=== PATIENT | female | born 1950 | race Hispanic/Latino ===

== ENCOUNTER 2018-05-17 17:46 | Observation (INO) | payer MEDICARE ==
[~2018-05-17] VITALS: Ht 154.9 cm; Wt 84.8 kg
[~2018-05-17 17:46] MED LIST: CETI10TA57 PO; GABA300C PO; HUMLIS7525 SQ; HYDR-4064 PO; INSU10VI4 SQ; LISI-617 PO; MELA3TAB PO; METF-527 PO; MILK1CAP3 PO
[2018-05-17] MEDS ORDERED: GLUCAGON 1MG KIT 1 MG ML IM PRN (18:30)
[2018-05-17] MEDS ORDERED: DEXTROSE 50%-WATER 50 ML DISP.SYRIN IV PRN (18:30)
[2018-05-17] MEDS ORDERED: ZOLPIDEM TARTRATE 5 MG TAB PO PRN (18:30)
[2018-05-17] MEDS ORDERED: ONDANSETRON ODT 4 MG TAB PO PRN (18:30)
[2018-05-17] MEDS ORDERED: DiphenhydrAMINE HCL 50 MG/ML VIAL IVP PRN (18:30)
[2018-05-17] MEDS ORDERED: ACETAMINOPHEN 325 MG TAB PO PRN ×2 (18:30)
[2018-05-17 18:46] VITALS: BP 159/78
[2018-05-17] MEDS: 1/2 NORMAL SALINE 1,000 ML IV SCH (18:53)
[2018-05-17] MEDS: METRONIDAZOLE 500MG/100ML BAG 100 ML IVPB SCH (18:53)
[2018-05-17] MEDS: CEFTRIAXONE SODIUM 1 GM IVP SCH (18:53)
[2018-05-17 19:11] LABS: HEMATOCRIT 33.2 % (36-48); MEAN CORPUSCULAR HEMOGLOBIN 30.6 pg (27.0-33.0); MEAN CORPUSCULAR HGB CONC 35.2 g/dL (32.0-36.0); MEAN CORPUSCULAR VOLUME 86.9 fL (79-99); PLATELET COUNT (AUTO) 288 K/uL (130-400); RED BLOOD CELL COUNT(AUTO) 3.83 MIL/uL (4.00-5.50); RED CELL DISTRIBUTION WIDTH 13.3 % (11.0-15.5); WHITE BLOOD COUNT (AUTO) 10.6 K/uL (4.8-10.8)
[2018-05-17 19:31] LABS: ALBUMIN 3.3 g/dL (3.5-5.0); BILIRUBIN,DIRECT 0.1 mg/dL (0.0-0.3); BILIRUBIN,TOTAL 0.3 mg/dL (0.2-1.0); CREATININE 1.3 mg/dL (0.5-1.5); POTASSIUM 3.8 mmol/L (3.5-5.1); TOTAL PROTEIN, SERUM 8.1 g/dL (6.0-8.3)
[2018-05-17 19:40] LABS: EOSINOPHILS % (MANUAL) 5 % (1-6); LYMPHOCYTES % (MANUAL) 25 % (22-44); MONOCYTES % (MANUAL) 4 % (2-9); REACTIVE LYMPHOCYTES 1 % (0-0); SEGMENTED NEUTROPHILS % 65 % (40-70)
[2018-05-17 19:41] LABS: PLATELET MORPHOLOGY COMMENT ADEQUATE
[2018-05-17] MEDS ORDERED: DIATR MEGLU/DIATRIZOATE SODIUM 30 ML BOTTLE ONE (19:42)
[2018-05-17] MEDS ORDERED: IOHEXOL-350 75 ML VIAL IV ONE (19:42)
[2018-05-17 20:12] VITALS: BP 127/43
[2018-05-17] MEDS: INSULIN R PO SS1 SQ SCH (20:47)
[2018-05-17] MEDS ORDERED: MORPHINE SULFATE 4 MG/1ML SYG IV PRN (21:15)
[2018-05-17] MEDS ORDERED: MELA1TAB21 PO (21:54)
[2018-05-17] MEDS ORDERED: INSU200I4 SQ (21:58)
[2018-05-17] MEDS ORDERED: FAMO40TA7 PO (21:58)
[2018-05-17] MEDS ORDERED: CITA-106 PO (22:00)
[2018-05-17] MEDS ORDERED: BACL10TA PO (22:00)
[2018-05-17] MEDS ORDERED: DULA1.5P SQ (22:04)
[2018-05-17] MEDS ORDERED: PANT40TA PO (22:10)
[2018-05-17] MEDS ORDERED: NITR0.3T11 SL (22:10)
[2018-05-17] MEDS ORDERED: ALBU2.5V2 IH (22:11)
[2018-05-17] MEDS: FAMOTIDINE 20MG TAB 20 MG TAB PO SCH (22:16)
[2018-05-18 00:12] VITALS: BP 116/39
[2018-05-18] MEDS: METRONIDAZOLE 500MG/100ML BAG 100 ML IVPB SCH ×3 (02:15→18:18)
[2018-05-18 04:12] VITALS: BP 99/53
[2018-05-18 05:08] LABS: HEMATOCRIT 28.7 % (36-48); MEAN CORPUSCULAR HGB CONC 34.6 g/dL (32.0-36.0); MEAN CORPUSCULAR VOLUME 86.6 fL (79-99); PLATELET COUNT (AUTO) 239 K/uL (130-400); RED BLOOD CELL COUNT(AUTO) 3.32 MIL/uL (4.00-5.50); RED CELL DISTRIBUTION WIDTH 12.9 % (11.0-15.5)
[2018-05-18 05:20] LABS: BAND NEUTROPHILS % (MANUAL) 1 % (0-2); LYMPHOCYTES % (MANUAL) 21 % (22-44); MAN.DIFF COMMENT-IMPRESSION MANUAL DIFFERENTIAL; MONOCYTES % (MANUAL) 5 % (2-9); PLATELET MORPHOLOGY COMMENT ADEQUATE; SEGMENTED NEUTROPHILS % 73 % (40-70)
[2018-05-18 05:22] LABS: ALBUMIN 2.8 g/dL (3.5-5.0); BILIRUBIN,DIRECT 0.1 mg/dL (0.0-0.3); BILIRUBIN,TOTAL 0.2 mg/dL (0.2-1.0); POTASSIUM 3.2 mmol/L (3.5-5.1); TOTAL PROTEIN, SERUM 6.7 g/dL (6.0-8.3)
[2018-05-18] MEDS: INSULIN R PO SS1 SQ SCH (06:13)
[2018-05-18] MEDS: CEFTRIAXONE SODIUM 1 GM IVP SCH ×2 (06:56→18:18)
[2018-05-18 07:42] VITALS: BP 114/55
[2018-05-18] MEDS: FAMOTIDINE 20MG TAB 20 MG TAB PO SCH ×2 (09:00→20:10)
[2018-05-18] MEDS: ENOXAPARIN SODIUM 30 MG/0.3 ML SQ SCH (09:42)
[2018-05-18] MEDS: 1/2 NORMAL SALINE 1,000 ML IV SCH ×2 (09:44→21:10)
[2018-05-18 11:00] VITALS: BP 98/48
[2018-05-18 15:10] VITALS: BP 88/36
[2018-05-18] MEDS: INSULIN HUMULIN R 100 UNIT/ML 3ML SQ SCH (16:13)
[2018-05-18 20:16] VITALS: BP 144/54
[2018-05-19 00:16] VITALS: BP 115/42
[2018-05-19] MEDS: METRONIDAZOLE 500MG/100ML BAG 100 ML IVPB SCH ×2 (02:11→09:40)
[2018-05-19 04:16] VITALS: BP 114/47
[2018-05-19] MEDS: CEFTRIAXONE SODIUM 1 GM IVP SCH (06:30)
[2018-05-19 07:00] VITALS: BP 112/60
[2018-05-19] MEDS: INSULIN HUMULIN R 100 UNIT/ML 3ML SQ SCH (07:30)
[2018-05-19] MEDS: ENOXAPARIN SODIUM 30 MG/0.3 ML SQ SCH (09:00)
[2018-05-19] MEDS: FAMOTIDINE 20MG TAB 20 MG TAB PO SCH (09:00)
[2018-05-19] MEDS ORDERED: ALBUTEROL SULFATE 0.083% 2.5 MG/3 ML INH IH PRN (11:00)
[2018-05-19] MEDS ORDERED: CETIRIZINE HCL 5 MG TABLET PO PRN (11:00)
[2018-05-19 11:10] VITALS: BP 135/57
[2018-05-19] MEDS ORDERED: NITROGLYCERIN 0.4 MG SL TAB SL PRN (11:15)
[2018-05-19] MEDS ORDERED: GABAPENTIN 300 MG CAPSULE PO SCH (21:00)
[2018-05-19] MEDS ORDERED: MELATONIN 10 MG PO SCH (21:00)
[2018-05-20] MEDS ORDERED: PANTOPRAZOLE SODIUM 40 MG TABLET.DR PO SCH (09:00)
[2018-05-20] MEDS ORDERED: CITALOPRAM 20 MG TABLET PO SCH (09:00)
[2018-05-20] MEDS ORDERED: MILK THISTLE SEED EXTRACT PO SCH (09:00)
[2018-05-20] MEDS ORDERED: TRESIBA U SQ SCH (09:00)
[2018-05-20] MEDS ORDERED: LISINOPRIL 5 MG TABLET PO SCH (09:00)
[2018-05-20] MEDS ORDERED: FAMOTIDINE 20MG TAB 20 MG TAB PO SCH (09:00)
[2018-05-26] MEDS ORDERED: TRULICITY 1.5 MG SQ SCH (09:00)
== END 2018-05-19 12:13 | disposition home or self-care (01) ==
LOC: EDH 17:46 → 4BH 17:47 → UNDOADMOB 18:20 → 4BH 18:20 → UNDODISOB 05-19 12:13
PROVIDERS: ADMIT Internal Medicine; ATTEND Internal Medicine
DX: K57.92 Diverticulitis of intestine, part unspecified, without perforation or abscess without bleeding (principal); E86.0 Dehydration; E11.43 Type 2 diabetes mellitus with diabetic autonomic (poly)neuropathy; K31.84 Gastroparesis; J44.9 Chronic obstructive pulmonary disease, unspecified; I45.10 Unspecified right bundle-branch block; E78.5 Hyperlipidemia, unspecified; D64.9 Anemia, unspecified; E66.9 Obesity, unspecified; I10 Essential (primary) hypertension; M19.90 Unspecified osteoarthritis, unspecified site; G47.00 Insomnia, unspecified; F32.9 Major depressive disorder, single episode, unspecified; Z80.0 Family history of malignant neoplasm of digestive organs; Z95.0 Presence of cardiac pacemaker
CPT/HCPCS: 36415 ×2; 74177; 80048 ×2; 80076 ×2; 82948 ×4; 85025 ×2; 94664; 96361 ×2; 96365; 96366 ×2; 96372; 96375 ×2; 96376; 99285; A4218 ×4; G0378 ×42; J0696 ×4; J1650; J2270; J3490 ×5; Q9963; Q9967

== ENCOUNTER 2019-08-09 08:46 | Day surgery (SDC) | payer MEDICARE ==
[2019-08-05 13:56] VITALS: BP 175/57
[2019-08-05 14:03] LABS: BASOPHILS % (AUTO) 0.7 % (0.0-5.0); EOSINOPHILS % (AUTO) 2.9 % (0.0-8.0); HEMATOCRIT 32.7 % (36-48); LYMPHOCYTES % (AUTO) 31.7 % (21.0-51.0); MEAN CORPUSCULAR HEMOGLOBIN 29.5 pg (27.0-33.0); MEAN CORPUSCULAR HGB CONC 33.5 g/dL (32.0-36.0); MONOCYTES % (AUTO) 5.8 % (3.0-13.0); NEUTROPHILS % (AUTO) 58.9 % (40.0-77.0); PLATELET COUNT (AUTO) 242 K/uL (130-400); RED BLOOD CELL COUNT(AUTO) 3.72 MIL/uL (4.00-5.50); RED CELL DISTRIBUTION WIDTH 13.8 % (11.0-15.5); WHITE BLOOD COUNT (AUTO) 8.2 K/uL (4.8-10.8)
[2019-08-05 14:13] LABS: CREATININE 1.1 mg/dL (0.5-1.5); POTASSIUM 4.7 mmol/L (3.5-5.1)
[2019-08-05 14:16] LABS: APPEARANCE,URINE Clear (CLEAR); BILIRUBIN,URINE Negative (NEGATIVE); COLOR,URINE Yellow (YELLOW); GLUCOSE, URINE (UA) Negative (NEGATIVE); KETONES,URINE Negative (NEGATIVE); LEUKOCYTE ESTERASE ,URINE Trace (NEGATIVE); NITRATE,URINE Negative (NEGATIVE); OCCULT BLOOD,URINE Negative (NEGATIVE); PROTEIN,URINE Negative (NEGATIVE)
[2019-08-05 14:17] LABS: INR 0.96 (0.85-1.15); PARTIAL THROMBOPLASTIN TIME 24.3 SEC (26.3-35.5); PROTHROMBIN TIME 10.1 SEC (9.6-11.6)
[2019-08-05 14:28] LABS: BACTERIA,URINE Rare /HPF (None Seen); RBC,URINE None Seen /HPF (0-1)
[2019-08-05 14:29] LABS: SQUAMOUS EPITHELIAL CELL,UR 0-2 /HPF (0-2); WBC,URINE 0-1 /HPF (0-1)
[~2019-08-09] VITALS: Ht 144.8 cm; Wt 81.0 kg
[2019-08-09] VITALS (11 sets, daily range): BP systolic 102–163; BP diastolic 43–53
[~2019-08-09 08:46] MED LIST changes: +ACETAMINOPHEN 325 MG TAB PO PRN; +ASPI-555 PO; -CETI10TA57 PO; -GABA300C PO; -HUMLIS7525 SQ; -HYDR-4064 PO; +IMDUR PO; -INSU10VI4 SQ; +INSU200I4 SQ; +MELA10TA2 PO; +MELA1TAB21 PO; -MELA3TAB PO; +METF-444 PO; -METF-527 PO; -MILK1CAP3 PO; +NITR0.3T11 SL; +OZEMPIC SQ; +SODIUM CHLORIDE 0.9% 500ML 500 ML IV SCH
[2019-08-09] MEDS ORDERED: SODIUM CHLORIDE 0.9% 1000ML 1,000 ML IV ONE (10:44)
[2019-08-09] MEDS ORDERED: PANT40TA PO (10:48)
[2019-08-09] MEDS ORDERED: AMOX1TAB16 PO (10:48)
[2019-08-09] MEDS ORDERED: CETRIZINE HCL PO (10:48)
[2019-08-09] MEDS ORDERED: GABA-531 PO (10:48)
[2019-08-09] MEDS ORDERED: LOPE2TAB24 PO (10:48)
[2019-08-09] MEDS ORDERED: METO-408 PO (10:48)
[2019-08-09] MEDS ORDERED: DOCU100C33 PO (10:48)
[2019-08-09] MEDS ORDERED: OZEMPIC SQ (11:04)
[2019-08-09] MEDS ORDERED: METF500T20 PO (11:08)
--- NOTE | 2019-08-09 11:08 | NUR ---
ADVISED DOCTOR FAY OF PATIENT TAKING HER TRESIBA 70 UNITS AT 3AM AND ADVISED MD OF PATIENT BEING ON ANTIBITOICS FOR SINUS INFECTION
[2019-08-09] MEDS ORDERED: ISOS30TA6 PO (11:30)
[2019-08-09] MEDS ORDERED: HEPARIN SODIUM 1000UNIT/ML 10ML VIAL ONE (11:56)
[2019-08-09] MEDS ORDERED: SODIUM BICARB 50MEQ 50ML VIAL ONE (11:56)
[2019-08-09] MEDS ORDERED: IOHEXOL-350 50ML VIAL IV ONE (11:56)
[2019-08-09] MEDS ORDERED: NITROGLYCERIN 5 MG/ML 10 ML VIAL IV ONE (11:56)
[2019-08-09] MEDS ORDERED: IOHEXOL 350 MG/ML 100ML INFUS..BTL IV ONE (11:57)
[2019-08-09] MEDS ORDERED: MIDAZOLAM HCL 1 MG/ML 2ML VIAL ONE (11:57)
[2019-08-09] MEDS ORDERED: MEPERIDINE-PF 25 MG/ML SYG ONE (11:57)
[2019-08-09] MEDS ORDERED: LIDOCAINE HCL 2% 20ML ONE (11:57)
[2019-08-09] MEDS ORDERED: SODIUM CHLORIDE 0.9% 1000ML 1,000 ML IV SCH (12:34)
[2019-08-09] MEDS ORDERED: GLUCAGON 1MG KIT 1 MG ML IM PRN (12:45)
[2019-08-09] MEDS ORDERED: DEXTROSE 50%-WATER 50 ML DISP.SYRIN IV PRN (12:45)
[2019-08-09] MEDS ORDERED: INSULIN HUMULIN R 100 UNIT/ML 3ML SQ SCH (16:30)
--- NOTE | 2019-08-09 17:50 | NUR ---
Pt discharged home, tolerating fluids/solids well, ambulating with stand-by assistance well. Denies any severe pain, nausea or dizziness. Pt and son report no further questions at this time.
== END 2019-08-09 17:50 | disposition home or self-care (01) ==
LOC: DAH 08:46
PROVIDERS: ATTEND Internal Medicine Cardiovascular Disease
DX: I25.10 Atherosclerotic heart disease of native coronary artery without angina pectoris (principal); E78.5 Hyperlipidemia, unspecified; I10 Essential (primary) hypertension; E11.9 Type 2 diabetes mellitus without complications; E66.01 Morbid (severe) obesity due to excess calories; Z79.84 Long term (current) use of oral hypoglycemic drugs; Z79.899 Other long term (current) drug therapy
CPT/HCPCS: 36415; 71045; 80048; 81001; 82948 ×3; 85025; 85610; 85730; 93005; 93458; A4215; A4216; A4221; A4222; A4223 ×2; A4606; C1760; C1894; J1644; J1815; J2175; J2250; J3490 ×3; J7030; Q9965; Q9967 ×2; 99156; 99157

== ENCOUNTER → 2019-09-21 | Outpatient (CLI) | payer MEDICARE ==
[~2019-09-21] MED LIST changes: -ACETAMINOPHEN 325 MG TAB PO PRN; +AMOX1TAB16 PO; +CETRIZINE HCL PO; +DOCU100C33 PO; +GABA-531 PO; -IMDUR PO; +ISOS30TA6 PO; +LOPE2TAB24 PO; -MELA10TA2 PO; -MELA1TAB21 PO; -METF-444 PO; +METF500T20 PO; +METO-408 PO; +PANT40TA PO; -SODIUM CHLORIDE 0.9% 500ML 500 ML IV SCH
== END | disposition home or self-care (01) ==
LOC: SHCH 13:37
PROVIDERS: ATTEND Internal Medicine Cardiovascular Disease
DX: I11.9 Hypertensive heart disease without heart failure (principal); I34.0 Nonrheumatic mitral (valve) insufficiency
CPT/HCPCS: 93306

== ENCOUNTER → 2019-10-26 | Outpatient (CLI) | payer MEDICARE ==
[~2019-10-26] MED LIST changes: +ALBUTEROL SULFATE 0.083% 2.5 MG/3 ML INH IH ONE
== END | disposition home or self-care (01) ==
LOC: RESP 12:52
PROVIDERS: ATTEND Internal Medicine Cardiovascular Disease
DX: R06.00 Dyspnea, unspecified (principal)
CPT/HCPCS: 94060; 94727; 94729

== ENCOUNTER 2019-12-16 09:19 | Observation (INO) | payer MEDICARE, OTHER ==
[2019-12-14 14:29] LABS: BASOPHILS % (AUTO) 0.7 % (0.0-5.0); EOSINOPHILS % (AUTO) 2.4 % (0.0-8.0); HEMATOCRIT 32.7 % (36-48); LYMPHOCYTES % (AUTO) 32.2 % (21.0-51.0); MEAN CORPUSCULAR HEMOGLOBIN 28.7 pg (27.0-33.0); MEAN CORPUSCULAR HGB CONC 31.8 g/dL (32.0-36.0); MEAN CORPUSCULAR VOLUME 90.1 fL (79-99); MONOCYTES % (AUTO) 5.2 % (3.0-13.0); NEUTROPHILS % (AUTO) 59.3 % (40.0-77.0); PLATELET COUNT (AUTO) 240 K/uL (130-400); RED BLOOD CELL COUNT(AUTO) 3.63 MIL/uL (4.00-5.50); RED CELL DISTRIBUTION WIDTH 12.8 % (11.0-15.5); WHITE BLOOD COUNT (AUTO) 9.9 K/uL (4.8-10.8)
[2019-12-14 14:40] LABS: INR 0.93 (0.85-1.15); PARTIAL THROMBOPLASTIN TIME 25.5 SEC (26.3-35.5); PROTHROMBIN TIME 9.8 SEC (9.6-11.6)
[2019-12-14 14:48] LABS: CREATININE 1.3 mg/dL (0.5-1.5); POTASSIUM 4.8 mmol/L (3.5-5.1)
[2019-12-14 15:03] VITALS: BP 117/40
--- NOTE | 2019-12-14 15:33 | NUR ---
SPOKE TO LALO GUERRIER AND HE IS AWARE OF BI-B AICD UPGRADE
--- NOTE | 2019-12-15 16:30 | NUR ---
labs abnormal everette FINCH reported to Cecil BETTENCOURT, pending call back
--- NOTE | 2019-12-15 16:35 | NUR ---
labs as per Dionte rsoe to proceed with planned procedure no new orders on labs reported
[2019-12-16] VITALS (8 sets, daily range): BP systolic 106–138; BP diastolic 36–70
[~2019-12-16] VITALS: Ht 149.9 cm; Wt 80.3 kg
[~2019-12-16 09:19] MED LIST changes: -ALBUTEROL SULFATE 0.083% 2.5 MG/3 ML INH IH ONE; -AMOX1TAB16 PO; +CEFAZOLIN SODIUM 1 GM VIAL IVP SCH; -DOCU100C33 PO; -LOPE2TAB24 PO; +METF-526 PO; -METF500T20 PO; +OMEP20TA2 PO; -PANT40TA PO; +SODIUM CHLORIDE 0.9% 500ML 500 ML IV SCH
[2019-12-16] MEDS ORDERED: SODIUM CHLORIDE 0.9% 1000ML 1,000 ML IV ONE (09:26)
[2019-12-16] MEDS ORDERED: HEPARIN SODIUM 1000UNIT/ML 10ML VIAL ONE (10:48)
[2019-12-16] MEDS ORDERED: SODIUM BICARB 50MEQ 50ML VIAL ONE (10:48)
[2019-12-16] MEDS ORDERED: IOHEXOL 350 MG/ML 100ML INFUS..BTL IV ONE (10:48)
[2019-12-16] MEDS ORDERED: IOHEXOL-350 50ML VIAL IV ONE (10:48)
[2019-12-16] MEDS ORDERED: LIDOCAINE HCL 2% 20ML ONE (10:49)
[2019-12-16] MEDS ORDERED: FENTANYL CITRATE PF 50 MCG/1 ML 2ML VIAL ONE (10:49)
[2019-12-16] MEDS ORDERED: MIDAZOLAM HCL 1 MG/ML 2ML VIAL ONE ×6 (10:49→15:53)
[2019-12-16] MEDS ORDERED: BUPIVACAINE/PF 0.25% 30ML VIAL IJ ONE ×2 (10:50→13:14)
[2019-12-16] MEDS ORDERED: CEFAZOLIN SODIUM 1 GM VIAL ONE (13:11)
[2019-12-16] MEDS ORDERED: IODIXANOL 320 MG/ML 100 ML VIAL ONE ×2 (13:12→15:22)
[2019-12-16] MEDS ORDERED: MEPERIDINE-PF 25 MG/ML SYG ONE ×3 (13:13→15:53)
[2019-12-16] MEDS ORDERED: LIDOCAINE HCL 1% MDV 50ML VIAL ONE (13:14)
[2019-12-16] MEDS ORDERED: THROMBIN-JMI 5000 UNIT/VIAL TP ONE (16:38)
[2019-12-16] MEDS ORDERED: OCTYL 2-CYANOACRYLATE 1 EACH TP ONE ×2 (16:59→17:03)
[2019-12-16] MEDS ORDERED: DEXTROSE 50%-WATER 50 ML DISP.SYRIN IV PRN (17:30)
[2019-12-16] MEDS ORDERED: ONDANSETRON HCL 4 MG/2 ML VIAL IV PRN (17:30)
--- NOTE | 2019-12-16 17:50 | NUR ---
PT TSF TO 228 FROM SECURITY COORDINATOR
--- NOTE | 2019-12-16 18:08 | NUR ---
INFORMED DR. CADENA OF PATIENT'S ROOM NUMBER.
[2019-12-16] MEDS ORDERED: NITROGLYCERIN 0.4 MG SL TAB SL PRN (20:30)
[2019-12-16] MEDS: ACETAMINOPHEN-CODEINE 300/30MG TAB PO PRN (20:43)
[2019-12-16] MEDS: INSULIN HUMULIN R 100 UNIT/ML 3ML SQ SCH (20:45)
[2019-12-16] MEDS ORDERED: INSULIN DEGLUDEC 70 UNIT SQ SCH (21:00)
[2019-12-16] MEDS ORDERED: ASPIRIN 81 MG EC TAB PO SCH (21:00)
[2019-12-16] MEDS ORDERED: METOPROLOL SUCCINATE 50 MG TAB.SR.24H PO SCH (21:00)
[2019-12-16] MEDS ORDERED: ISOSORBIDE MONO 30MG TAB SR PO SCH (21:00)
[2019-12-16] MEDS ORDERED: CETIRIZINE HCL 5 MG TABLET PO SCH (21:00)
[2019-12-16] MEDS ORDERED: LISINOPRIL 5 MG TABLET PO SCH (21:00)
[2019-12-16] MEDS ORDERED: GABAPENTIN 300 MG CAPSULE PO SCH (21:00)
[2019-12-17] VITALS: BP 111/49
[2019-12-17] MEDS: CEFAZOLIN SODIUM 1 GM VIAL IVP SCH ×2 (00:10→08:41)
[2019-12-17] MEDS: ACETAMINOPHEN-CODEINE 300/30MG TAB PO PRN (01:55)
[2019-12-17 04:10] VITALS: BP 127/59
[2019-12-17] MEDS: INSULIN HUMULIN R 100 UNIT/ML 3ML SQ SCH ×3 (06:39→16:30)
[2019-12-17 08:00] VITALS: BP 134/55
[2019-12-17] MEDS ORDERED: PANTOPRAZOLE SODIUM 40 MG TABLET.DR PO SCH (09:00)
[2019-12-17] MEDS ORDERED: SEMAGLUTIDE SQ SCH (09:00)
[2019-12-17 11:30] VITALS: BP 128/55
--- NOTE | 2019-12-17 18:10 | NUR ---
HL REMOVED, CATHETER INTACT. DISCHARGE INSTRUCTIONS GIVEN TO PT. AND PT.'S DAUGHTER AT BEDSIDE. REMINDED PT. RE:LEFT ARM RESTRICTIONS/PRECAUTIONS, VERBALIZED UNDERSTANDING.
== END 2019-12-17 18:30 | disposition home or self-care (01) ==
LOC: DAH 09:19 → 2DH 09:20
PROVIDERS: ADMIT Internal Medicine; ATTEND Internal Medicine
DX: I42.9 Cardiomyopathy, unspecified (principal); E11.9 Type 2 diabetes mellitus without complications; E78.5 Hyperlipidemia, unspecified; I11.0 Hypertensive heart disease with heart failure; I50.9 Heart failure, unspecified; I25.10 Atherosclerotic heart disease of native coronary artery without angina pectoris; Z79.4 Long term (current) use of insulin; Z95.0 Presence of cardiac pacemaker; Z79.899 Other long term (current) drug therapy
CPT/HCPCS: 33225; 33233; 33249; 36415; 71046; 80048; 82948 ×5; 85025; 85610; 85730; 93005; 96372; 96374; 96375; 96376; A4215; A4216; A4221; A4222; A4223 ×3; A4606; A4663; C1769 ×2; C1882; C1894; C1895; C1900; G0378 ×16; J0690 ×3; J1815 ×3; J2175 ×3; J2250 ×6; J2405; J3490 ×3; J7030; Q9967; 99156; 99157; J1644; J3010

== ENCOUNTER → 2020-08-29 | Outpatient (CLI) | payer OTHER ==
[~2020-08-29] MED LIST changes: -ASPI-555 PO; +ASPI-556 PO; -CEFAZOLIN SODIUM 1 GM VIAL IVP SCH; -SODIUM CHLORIDE 0.9% 500ML 500 ML IV SCH
== END | disposition home or self-care (01) ==
LOC: SHCH 07:36
PROVIDERS: ATTEND Internal Medicine Cardiovascular Disease
DX: I42.0 Dilated cardiomyopathy (principal); R55 Syncope and collapse; E66.9 Obesity, unspecified; E11.9 Type 2 diabetes mellitus without complications
CPT/HCPCS: 93306; 93356

== ENCOUNTER → 2020-11-06 | Outpatient (CLI) | payer OTHER | END | disposition home or self-care (01) | LOC: SLP 20:05 | PROVIDERS: ATTEND Internal Medicine Cardiovascular Disease | DX: G47.33 Obstructive sleep apnea (adult) (pediatric) (principal); R40.0 Somnolence | CPT/HCPCS: 95810 ==

== ENCOUNTER → 2020-11-24 | Outpatient (CLI) | payer OTHER | END | disposition home or self-care (01) | LOC: SLP 19:53 | PROVIDERS: ATTEND Internal Medicine Cardiovascular Disease | DX: R40.0 Somnolence (principal); G47.33 Obstructive sleep apnea (adult) (pediatric) | CPT/HCPCS: 95811 ==

== ENCOUNTER → 2021-02-13 | Outpatient (CLI) | payer OTHER ==
[~2021-02-13] MED LIST changes: -ISOS30TA6 PO; +ISOS30TA92 PO; -LISI-617 PO; +LISI-809 PO
== END | disposition home or self-care (01) ==
LOC: SHCH 13:31
PROVIDERS: ATTEND Internal Medicine Cardiovascular Disease
DX: R60.9 Edema, unspecified (principal)
CPT/HCPCS: 93970

== ENCOUNTER 2021-05-28 03:26 | Observation (INO) | payer OTHER, MEDICARE ==
[2021-05-28] VITALS (15 sets, daily range): BP systolic 104–157; BP diastolic 44–82
[~2021-05-28] VITALS: Ht 160 cm; Wt 85.7 kg
[2021-05-28 04:15] LABS: BASOPHILS % (AUTO) 0.7 % (0.0-5.0); EOSINOPHILS % (AUTO) 2.3 % (0.0-8.0); HEMATOCRIT 32.9 % (36-48); LYMPHOCYTES % (AUTO) 36.2 % (21.0-51.0); MEAN CORPUSCULAR HEMOGLOBIN 28.7 pg (27.0-33.0); MEAN CORPUSCULAR HGB CONC 32.2 g/dL (32.0-36.0); MEAN CORPUSCULAR VOLUME 89.2 fL (79-99); MONOCYTES % (AUTO) 6.4 % (3.0-13.0); PLATELET COUNT (AUTO) 258 K/uL (130-400); RED BLOOD CELL COUNT(AUTO) 3.69 MIL/uL (4.00-5.50); RED CELL DISTRIBUTION WIDTH 13.2 % (11.0-15.5); WHITE BLOOD COUNT (AUTO) 10.4 K/uL (4.8-10.8)
[2021-05-28 04:23] LABS: INR 0.96 (0.85-1.15); PROTHROMBIN TIME 10.5 SEC (9.6-11.6)
[2021-05-28 04:25] LABS: CREATININE 1.2 mg/dL (0.5-1.5); POTASSIUM 4.1 mmol/L (3.5-5.1)
[2021-05-28 04:30] LABS: ALBUMIN 3.1 g/dL (3.5-5.0); BILIRUBIN,TOTAL 0.3 mg/dL (0.2-1.0); TOTAL PROTEIN, SERUM 7.6 g/dL (6.0-8.3)
[2021-05-28 04:39] LABS: AMPHET/METH SCREEN,URINE NEGATIVE (NEGATIVE); BARBITURATE SCREEN, URINE NEGATIVE (NEGATIVE); BENZODIAZEPINES SCREEN,URINE NEGATIVE (NEGATIVE); CANNABINOID SCREEN,URINE NEGATIVE (NEGATIVE); COCAINE SCREEN,URINE NEGATIVE (NEGATIVE); OPIATE SCREEN,URINE NEGATIVE (NEGATIVE); PHENCYCLIDINE SCREEN,URINE NEGATIVE (NEGATIVE)
[2021-05-28] MEDS ORDERED: LACT1CAP65 PO (05:30)
[2021-05-28] MEDS ORDERED: MILK175C5 PO (05:30)
[2021-05-28] MEDS ORDERED: MELA1TAB21 PO (05:30)
[2021-05-28] MEDS ORDERED: CHOL200059 PO (05:30)
[2021-05-28] MEDS ORDERED: NITROGLYCERIN 0.4 MG SL TAB SL PRN (07:00)
[2021-05-28] MEDS ORDERED: 0.9%NACL 10ML VIAL IVP PRN (07:30)
[2021-05-28 08:06] LABS: CREATINE KINASE, TOTAL 26 U/L (21-232); MYOGLOBIN 29 ng/mL (10-92)
[2021-05-28] MEDS ORDERED: ASPIRIN 325 MG TABLET PO SCH (09:00)
[2021-05-28] MEDS ORDERED: ASPIRIN 81 MG EC TAB PO SCH (11:32)
[2021-05-28] MEDS: METOPROLOL TARTRATE 25 MG TAB PO SCH ×2 (11:33→21:00)
[2021-05-28] MEDS: RANOLAZINE 500 MG TAB.SR.12H PO SCH ×2 (11:33→21:00)
[2021-05-28 12:33] LABS: CHOLESTEROL 154 mg/dL (<200); HDL CHOLESTEROL 43 mg/dL (35-85); LDL DIRECT 86 mg/dL (0-99); TRIGLYCERIDES 189 mg/dL (30-200)
[2021-05-28] MEDS ORDERED: IOHEXOL-350 50ML VIAL IV ONE (12:42)
[2021-05-28] MEDS ORDERED: MIDAZOLAM HCL 1 MG/ML 2ML VIAL ONE (12:42)
[2021-05-28] MEDS ORDERED: IOHEXOL 350 MG/ML 100ML INFUS..BTL IV ONE (12:42)
[2021-05-28] MEDS ORDERED: HEPARIN 10,000 UNIT/10ML (1,000 UNIT/ML) VIAL ONE (12:42)
[2021-05-28] MEDS ORDERED: FENTANYL CITRATE PF 50 MCG/1 ML 2ML VIAL ONE (12:42)
[2021-05-28] MEDS ORDERED: NICARDIPINE 25MG INJ IV ONE (12:42)
[2021-05-28] MEDS ORDERED: LIDOCAINE HCL 1% 20 ML VIAL ONE (12:42)
[2021-05-28] MEDS ORDERED: NITROGLYCERIN 2 MG VIAL IV ONE (13:16)
[2021-05-28] MEDS ORDERED: 0.9%NACL 1000ML 1,000 ML IV SCH (15:00)
[2021-05-28] MEDS ORDERED: EZETIMIBE 10 MG TAB PO SCH (21:00)
[2021-05-28] MEDS ORDERED: MILK THISTLE SEED EXTRACT 175 MG PO SCH (21:00)
[2021-05-28] MEDS ORDERED: LISINOPRIL 5 MG TABLET PO SCH (21:00)
[2021-05-28] MEDS ORDERED: CHOLECALCIFEROL 50 MCG PO SCH (21:00)
[2021-05-28] MEDS ORDERED: PYRIDOXINE HCL PO SCH (21:00)
[2021-05-28] MEDS ORDERED: LACTOBACILLUS RHAMNOSUS GG 1 EACH CAP.SPRINK PO SCH (21:00)
[2021-05-28] MEDS ORDERED: GABAPENTIN 300 MG CAPSULE PO SCH (21:00)
[2021-05-28] MEDS ORDERED: INSULIN DEGLUDEC 80 UNIT SQ SCH (21:00)
[2021-05-28] MEDS ORDERED: ISOSORBIDE MONO 30MG SR TAB PO SCH (21:00)
[2021-05-28] MEDS ORDERED: CETIRIZINE HCL 5 MG TABLET PO SCH (21:00)
[2021-05-28] MEDS ORDERED: MELATONIN PO SCH (21:00)
[2021-05-29 04:00] VITALS: BP 111/49
[2021-05-29 04:45] LABS: HEMATOCRIT 28.8 % (36-48); MEAN CORPUSCULAR HEMOGLOBIN 29.2 pg (27.0-33.0); MEAN CORPUSCULAR HGB CONC 32.3 g/dL (32.0-36.0); MEAN CORPUSCULAR VOLUME 90.6 fL (79-99); RED BLOOD CELL COUNT(AUTO) 3.18 MIL/uL (4.00-5.50); RED CELL DISTRIBUTION WIDTH 13.8 % (11.0-15.5); WHITE BLOOD COUNT (AUTO) 9.1 K/uL (4.8-10.8)
[2021-05-29 04:57] LABS: CREATININE 1.1 mg/dL (0.5-1.5); POTASSIUM 4.2 mmol/L (3.5-5.1)
[2021-05-29 08:00] VITALS: BP 100/44
[2021-05-29] MEDS: METOPROLOL TARTRATE 25 MG TAB PO SCH (09:00)
[2021-05-29] MEDS ORDERED: ASPIRIN 81 MG EC TAB PO SCH ×2 (09:00)
[2021-05-29] MEDS: RANOLAZINE 500 MG TAB.SR.12H PO SCH (09:08)
[2021-05-29 12:34] VITALS: BP 111/51
[2021-05-29 16:28] VITALS: BP 103/60
== END 2021-05-29 17:35 | disposition home or self-care (01) ==
LOC: EDH 03:26 → EDHIP 06:35 → INTOOBSV 06:35 → 4CH 15:15
PROVIDERS: ADMIT Internal Medicine; ATTEND Internal Medicine
DX: I25.110 Atherosclerotic heart disease of native coronary artery with unstable angina pectoris (principal); E78.5 Hyperlipidemia, unspecified; I11.0 Hypertensive heart disease with heart failure; I50.9 Heart failure, unspecified; I44.30 Unspecified atrioventricular block; I42.9 Cardiomyopathy, unspecified; I25.10 Atherosclerotic heart disease of native coronary artery without angina pectoris; I42.8 Other cardiomyopathies; E10.9 Type 1 diabetes mellitus without complications; Z95.0 Presence of cardiac pacemaker; Z79.4 Long term (current) use of insulin; Z79.82 Long term (current) use of aspirin; Z88.8 Allergy status to other drugs, medicaments and biological substances; Z79.899 Other long term (current) drug therapy
CPT/HCPCS: 36415 ×2; 71045; 80048; 80053; 80061 ×2; 80305; 82550 ×2; 82948 ×4; 83874; 84484 ×2; 85025; 85027; 85610; 93005 ×3; 93306; 93454; 96360; 96361; 99285; C1894 ×2; G0378 ×31; J1644; J2250; J3010; J3490; J7030; Q9965; Q9967; 99156; 99157

== ENCOUNTER 2022-07-06 15:01 | Observation (INO) | payer OTHER, MEDICARE ==
[~2022-07-06] VITALS: Ht 144.8 cm; Wt 80.1 kg
[~2022-07-06 15:01] MED LIST changes: +CHOL200059 PO; +LACT1CAP65 PO; -LISI-809 PO; +LISI5TAB21 PO; +MELA1TAB21 PO; +MILK175C5 PO
[2022-07-06 16:04] LABS: APPEARANCE,URINE CLEAR (CLEAR); BILIRUBIN,URINE NEGATIVE (NEGATIVE); COLOR,URINE YELLOW (YELLOW); GLUCOSE, URINE (UA) NEGATIVE (NEGATIVE); KETONES,URINE NEGATIVE (NEGATIVE); LEUKOCYTE ESTERASE ,URINE NEGATIVE (NEGATIVE); NITRATE,URINE NEGATIVE (NEGATIVE); OCCULT BLOOD,URINE NEGATIVE (NEGATIVE); PROTEIN,URINE NEGATIVE (NEGATIVE); UROBILINOGEN,URINE 0.2 mg/dL (0.2-1.0)
[2022-07-06 16:15] LABS: BASOPHILS % (AUTO) 0.6 % (0.0-5.0); EOSINOPHILS % (AUTO) 3.4 % (0.0-8.0); HEMATOCRIT 33.7 % (36-48); LYMPHOCYTES % (AUTO) 29.7 % (21.0-51.0); MEAN CORPUSCULAR HEMOGLOBIN 28.9 pg (27.0-33.0); MEAN CORPUSCULAR HGB CONC 32.9 g/dL (32.0-36.0); MEAN CORPUSCULAR VOLUME 87.8 fL (79-99); MONOCYTES % (AUTO) 5.5 % (3.0-13.0); NEUTROPHILS % (AUTO) 60.4 % (40.0-77.0); PLATELET COUNT (AUTO) 251 K/uL (130-400); RED BLOOD CELL COUNT(AUTO) 3.84 MIL/uL (4.00-5.50); RED CELL DISTRIBUTION WIDTH 12.4 % (11.0-15.5); WHITE BLOOD COUNT (AUTO) 9.7 K/uL (4.8-10.8)
[2022-07-06 16:40] LABS: CREATININE 1.2 mg/dL (0.5-1.5); POTASSIUM 4.4 mmol/L (3.5-5.1)
[2022-07-06 16:48] LABS: ALBUMIN 3.4 g/dL (3.5-5.0); MAGNESIUM 1.6 mg/dL (1.80-2.40); TOTAL PROTEIN, SERUM 7.6 g/dL (6.0-8.3)
[2022-07-06] MEDS ORDERED: MAGNESIUM 2GM PREMIX 50ML 50 ML IV SCH (17:00)
[2022-07-06] MEDS: MAGNESIUM 2GM PREMIX 50ML 50 ML IV ONE (17:10)
[2022-07-06] MEDS: LORAZEPAM 0.5 MG TABLET ONE (19:38)
[2022-07-06] MEDS: 1/2 NS 1000ML 1,000 ML IV ONE (19:45)
[2022-07-06 22:55] VITALS: BP 152/60
[2022-07-06] MEDS ORDERED: APIX5TAB PO (23:31)
[2022-07-06] MEDS ORDERED: EZET10TA13 PO (23:32)
[2022-07-06] MEDS ORDERED: LUBI24CA9 PO (23:36)
[2022-07-06] MEDS ORDERED: ALEN70TA80 PO (23:38)
[2022-07-06] MEDS ORDERED: MELO-106 PO (23:39)
[2022-07-06] MEDS ORDERED: RANO500T6 PO (23:39)
[2022-07-07 04:43] VITALS: BP 126/45
[2022-07-07 05:17] LABS: BASOPHILS % (AUTO) 0.7 % (0.0-5.0); EOSINOPHILS % (AUTO) 4.4 % (0.0-8.0); HEMATOCRIT 29.1 % (36-48); LYMPHOCYTES % (AUTO) 43.2 % (21.0-51.0); MEAN CORPUSCULAR VOLUME 87.9 fL (79-99); MONOCYTES % (AUTO) 6.3 % (3.0-13.0); NEUTROPHILS % (AUTO) 45.1 % (40.0-77.0); PLATELET COUNT (AUTO) 234 K/uL (130-400); RED BLOOD CELL COUNT(AUTO) 3.31 MIL/uL (4.00-5.50); RED CELL DISTRIBUTION WIDTH 12.7 % (11.0-15.5); WHITE BLOOD COUNT (AUTO) 9.2 K/uL (4.8-10.8)
[2022-07-07 07:15] VITALS: BP 99/40
[2022-07-07] MEDS: SEMAGLUTIDE SQ SCH (08:30)
[2022-07-07] MEDS ORDERED: NITROGLYCERIN 0.4 MG SL TAB SL PRN (08:30)
[2022-07-07] MEDS: RANOLAZINE 500 MG TAB.SR.12H PO SCH (09:01)
[2022-07-07] MEDS: LUBIPROSTONE 24 MCG CAP PO SCH (09:01)
[2022-07-07 13:10] VITALS: BP 99/40
[2022-07-07 15:40] VITALS: BP 122/42
[2022-07-07] MEDS ORDERED: ASPIRIN 81 MG EC TAB PO SCH (21:00)
[2022-07-07] MEDS ORDERED: MELATONIN PO SCH (21:00)
[2022-07-07] MEDS ORDERED: CETIRIZINE HCL 5 MG TABLET PO SCH (21:00)
[2022-07-07] MEDS ORDERED: LACTOBACILLUS RHAMNOSUS GG 1 EACH CAP.SPRINK PO SCH (21:00)
[2022-07-07] MEDS ORDERED: PYRIDOXINE HCL PO SCH (21:00)
[2022-07-07] MEDS ORDERED: ISOSORBIDE MONO 30MG SR TAB PO SCH (21:00)
[2022-07-07] MEDS ORDERED: APIXABAN 5 MG TABLET PO SCH (21:00)
[2022-07-07] MEDS ORDERED: INSULIN DEGLUDEC 80 UNIT SQ SCH (21:00)
[2022-07-07] MEDS ORDERED: MELOXICAM 7.5 MG TABLET PO SCH (21:00)
[2022-07-07] MEDS ORDERED: EZETIMIBE 10 MG TAB PO SCH (21:00)
[2022-07-07] MEDS ORDERED: AMITRIPTYLINE 25 MG TABLET PO SCH (21:00)
[2022-07-07] MEDS ORDERED: GABAPENTIN 300 MG CAPSULE PO SCH (21:00)
[2022-07-07] MEDS ORDERED: LISINOPRIL 5 MG TABLET PO SCH (21:00)
[2022-07-08] MEDS ORDERED: ALENDRONATE SODIUM 35 MG TAB PO SCH (07:30)
== END 2022-07-07 18:18 | disposition home or self-care (01) ==
LOC: EDH 15:01 → EDHIP 17:55 → 3BH 20:07
PROVIDERS: ADMIT Internal Medicine; ATTEND Internal Medicine
DX: G24.9 Dystonia, unspecified (principal); I11.0 Hypertensive heart disease with heart failure; I50.9 Heart failure, unspecified; E10.9 Type 1 diabetes mellitus without complications; E78.5 Hyperlipidemia, unspecified; E83.42 Hypomagnesemia; F32.A Depression, unspecified; G25.3 Myoclonus; G44.229 Chronic tension-type headache, not intractable; M47.812 Spondylosis without myelopathy or radiculopathy, cervical region; M81.0 Age-related osteoporosis without current pathological fracture; Z79.01 Long term (current) use of anticoagulants; Z79.4 Long term (current) use of insulin; Z90.710 Acquired absence of both cervix and uterus; Z79.899 Other long term (current) drug therapy; Z98.890 Other specified postprocedural states; Z95.810 Presence of automatic (implantable) cardiac defibrillator; Z79.84 Long term (current) use of oral hypoglycemic drugs; Z79.82 Long term (current) use of aspirin; Z90.49 Acquired absence of other specified parts of digestive tract
CPT/HCPCS: 96361 ×2; 96365; 96366; 99285; 82550; 83735; 84484; 80053; 85025 ×2; 85651; 81003; 36415 ×2; 70450; 72125; 93005; G0378 ×24; J3475

== ENCOUNTER → 2022-12-11 | Outpatient (CLI) | payer OTHER, MEDICARE ==
[~2022-12-11] MED LIST changes: +ALEN70TA80 PO; +APIX5TAB PO; -CHOL200059 PO; +EZET10TA13 PO; +LUBI24CA9 PO; +MELO-106 PO; -METF-526 PO; -METO-408 PO; -MILK175C5 PO; -OMEP20TA2 PO; +RANO500T6 PO
[2022-12-11 16:31] LABS: CREATININE 1.2 mg/dL (0.5-1.5); MAGNESIUM 1.6 mg/dL (1.80-2.40); POTASSIUM 4.2 mmol/L (3.5-5.1)
== END | disposition home or self-care (01) ==
LOC: LAB 15:20
PROVIDERS: ATTEND Internal Medicine Cardiovascular Disease
DX: I10 Essential (primary) hypertension (principal); E78.5 Hyperlipidemia, unspecified; R07.9 Chest pain, unspecified
CPT/HCPCS: 36415; 80048; 83735; 83880

== ENCOUNTER → 2023-01-03 | Outpatient (CLI) | payer OTHER, MEDICARE ==
[~2023-01-03] MED LIST changes: -MELA1TAB21 PO; +MELA1TAB73 PO
== END | disposition home or self-care (01) ==
LOC: SHCH 08:49
PROVIDERS: ATTEND Internal Medicine Cardiovascular Disease
DX: I35.0 Nonrheumatic aortic (valve) stenosis (principal); I70.0 Atherosclerosis of aorta; I51.89 Other ill-defined heart diseases
CPT/HCPCS: 93306

== ENCOUNTER → 2023-01-09 | Outpatient (CLI) | payer OTHER, MEDICARE ==
[~2023-01-09] MED LIST changes: +REGADENOSON 0.4 MG/5 ML PF SYG IVP SCH
== END | disposition home or self-care (01) ==
LOC: SHCH 08:30
PROVIDERS: ATTEND Internal Medicine Cardiovascular Disease
DX: I25.10 Atherosclerotic heart disease of native coronary artery without angina pectoris (principal); Z95.0 Presence of cardiac pacemaker
CPT/HCPCS: 78452; 96374; 93017; J2785; A9500 ×2

== ENCOUNTER → 2023-06-01 | Outpatient (CLI) | payer OTHER, MEDICARE ==
[~2023-06-01] MED LIST changes: -REGADENOSON 0.4 MG/5 ML PF SYG IVP SCH
== END | disposition home or self-care (01) ==
LOC: RAH 14:17
PROVIDERS: ATTEND Internal Medicine Cardiovascular Disease
DX: I08.0 Rheumatic disorders of both mitral and aortic valves (principal); E85.9 Amyloidosis, unspecified; R93.1 Abnormal findings on diagnostic imaging of heart and coronary circulation
CPT/HCPCS: 78803; 93306; 93356; A9538

== ENCOUNTER → 2024-02-12 | Outpatient (CLI) | payer OTHER, MEDICARE ==
[~2024-02-12] MED LIST changes: -EZET10TA13 PO; +EZET10TA81 PO
== END | disposition home or self-care (01) ==
LOC: LAB 11:19
PROVIDERS: ATTEND Internal Medicine
DX: R06.02 Shortness of breath (principal)
CPT/HCPCS: 36415; 82565; 84520

== ENCOUNTER → 2024-02-22 | Outpatient (CLI) | payer OTHER, MEDICARE ==
[~2024-02-22] MED LIST changes: +IOHEXOL 350 MG/ML 100ML INFUS..BTL IV ONE
== END | disposition home or self-care (01) ==
LOC: RAH 02-17 13:16
PROVIDERS: ATTEND Internal Medicine
DX: J84.10 Pulmonary fibrosis, unspecified (principal); R06.02 Shortness of breath; J98.4 Other disorders of lung; M47.815 Spondylosis without myelopathy or radiculopathy, thoracolumbar region; Z90.49 Acquired absence of other specified parts of digestive tract
CPT/HCPCS: 71270; Q9967; 75571

== ENCOUNTER → 2025-05-24 | Outpatient (CLI) | payer OTHER, MEDICARE ==
[~2025-05-24] MED LIST changes: -IOHEXOL 350 MG/ML 100ML INFUS..BTL IV ONE
[2025-05-24 22:07] VITALS: PULSE 72; RESP 18
[2025-05-24 22:30] VITALS: PULSE 73; RESP 24
--- NOTE | 2025-05-24 22:58 | NUR ---
CURRENT MEDICATION LIST : ELIQUIZ, GABAPENTIN, ENTREESO,OZEMPIC, ZOLOFT,CARAVEL, TRISIBA, VITAMIN B1, MELATONIN, SOFA ABORB, IRON, PROBIOTIC, MAGNESIUM. Addendum: 05/24/25 at 2321 by JAYLIN TRINH RTSLT Amended: Links added.
[2025-05-24 23:00] VITALS: PULSE 70; RESP 18
[2025-05-24 23:30] VITALS: PULSE 71; RESP 18
[2025-05-24 23:58] VITALS: PULSE 70; RESP 20
[2025-05-25] VITALS (10 sets, daily range): PULSE 69–74; RESP 16–18
== END | disposition home or self-care (01) ==
LOC: SLP 20:24
PROVIDERS: ATTEND Internal Medicine Cardiovascular Disease
DX: G47.33 Obstructive sleep apnea (adult) (pediatric) (principal); R06.83 Snoring; I10 Essential (primary) hypertension; R53.83 Other fatigue; E11.9 Type 2 diabetes mellitus without complications; R05.9 Cough, unspecified; R45.1 Restlessness and agitation; G44.89 Other headache syndrome; G47.00 Insomnia, unspecified; E66.9 Obesity, unspecified; Z68.38 Body mass index [BMI] 38.0-38.9, adult
CPT/HCPCS: 95810

== ENCOUNTER → 2025-05-31 | Outpatient (CLI) | payer MEDICARE, OTHER ==
[2025-05-31] VITALS (8 sets, daily range): PULSE 71–92; RESP 17–23
[2025-06-01] VITALS (11 sets, daily range): PULSE 48–77; RESP 12–23
== END | disposition home or self-care (01) ==
LOC: SLP 20:24
PROVIDERS: ATTEND Internal Medicine Cardiovascular Disease
DX: G47.33 Obstructive sleep apnea (adult) (pediatric) (principal); G47.34 Idiopathic sleep related nonobstructive alveolar hypoventilation; R06.83 Snoring; G47.00 Insomnia, unspecified; R53.83 Other fatigue; I10 Essential (primary) hypertension; E11.9 Type 2 diabetes mellitus without complications; R51.9 Headache, unspecified; R05.9 Cough, unspecified; F32.A Depression, unspecified; E66.9 Obesity, unspecified; Z86.79 Personal history of other diseases of the circulatory system
CPT/HCPCS: 95811

== ENCOUNTER → 2025-10-11 | Outpatient (CLI) | payer OTHER, MEDICARE ==
[~2025-10-11] MED LIST changes: +SUGAMMADEX SODIUM 200 MG/2 ML VIAL IV ONE
--- NOTE | 2025-10-11 21:18 | HMCIMG ---
EXAM CT Chest Without IV contrast. CLINICAL HISTORY Shortness of breath. TECHNIQUE Axial computed tomography images of the chest obtained without intravenous contrast. COMPARISON None provided. FINDINGS Lungs Lung volumes are hyperinflated. Airway wall thickening and peribronchial haziness involving the central bronchi are present, compatible with chronic bronchitis and bronchiolitis. Few small thin-walled pneumatoceles are noted in the right upper lobe measuring up to 1.2 cm. No dominant pulmonary mass or confluent consolidation. Pleural Spaces No pneumothorax or pleural effusion. Heart and Great Vessels Heart size within normal limits. No significant pericardial effusion. The main pulmonary artery measures 3.2 cm. Ascending aorta measures 3.5 cm. External cardiac pacemaker in situ without hardware-related complication. Calcific atherosclerosis noted in the thoracic aorta and coronary circulation. Lymph Nodes No mediastinal, hilar, or axillary lymphadenopathy. Upper Abdomen Fatty liver with scattered calcified granulomata up to 5???6 mm. Similar calcified granulomata present within the spleen. Gallbladder surgically absent. No acute upper-abdominal abnormality. Bones Severe degenerative thoracolumbar spondylosis with associated dextroscoliotic deformity. No acute osseous injury. IMPRESSION: * Enlarged main pulmonary artery measuring 3.2 cm, with normal-calibre ascending aorta (3.5 cm). This finding can be associated with pulmonary arterial hypertension, though CT alone is not diagnostic; correlation with clinical markers and echocardiography is appropriate if clinically indicated. * Hyperinflated lungs with features of chronic bronchitis/bronchiolitis, including central airway wall thickening and peribronchial haziness, with a few small pneumatoceles in the right upper lobe. * Fatty liver with multiple calcified granulomata; additional splenic granulomata; prior cholecystectomy. * Severe degenerative thoracolumbar spondylosis with dextroscoliotic deformity. * External cardiac pacemaker without hardware complication. * No acute intrathoracic abnormal /Giulia
== END | disposition home or self-care (01) ==
LOC: RAH 12:52
PROVIDERS: ATTEND Internal Medicine
DX: J98.4 Other disorders of lung (principal); J98.09 Other diseases of bronchus, not elsewhere classified; R06.02 Shortness of breath; K76.0 Fatty (change of) liver, not elsewhere classified; M41.85 Other forms of scoliosis, thoracolumbar region; M47.815 Spondylosis without myelopathy or radiculopathy, thoracolumbar region; I70.0 Atherosclerosis of aorta; I25.10 Atherosclerotic heart disease of native coronary artery without angina pectoris; D73.89 Other diseases of spleen; Z90.49 Acquired absence of other specified parts of digestive tract; Z95.0 Presence of cardiac pacemaker
CPT/HCPCS: 71250